=== PATIENT | female | born 1990 | race Caucasian/White ===

== ENCOUNTER 2017-12-12 15:51 | Emergency (ER) | payer OTHER ==
--- NOTE | 2017-12-12 16:14 | C.PDOC ---
History Of Present Illness 27 yr old F c/o non productive cough for 1 week, fever in the first 3 days, now resolved, mild nasal congestion. Denies n/v/d, abdominal pain. Time Seen by Provider: 12/12/17 16:07 Chief Complaint (Nursing): Cough, Cold, Congestion History Per: Patient History/Exam Limitations: no limitations Onset/Duration Of Symptoms: Days (7) Current Symptoms Are (Timing): Better Location Of Pain: Other (cough) Associated Symptoms: Fever (now resolved) Past Medical History Reviewed: Historical Data, Nursing Documentation, Vital Signs Vital Signs: Last Vital Signs Temp 98.3 F 12/12/17 16:03 Pulse 94 H 12/12/17 16:03 Resp 18 12/12/17 16:03 BP 107/74 12/12/17 16:03 Pulse Ox 100 12/12/17 16:14 - Medical History PMH: Asthma Family History: States: No Known Family Hx - Social History Hx Alcohol Use: No Hx Substance Use: No - Immunization History Hx Tetanus Toxoid Vaccination: No Hx Influenza Vaccination: No Hx Pneumococcal Vaccination: No Review Of Systems Except As Marked, All Systems Reviewed And Found Negative. Constitutional: Positive for: Fever ENT: Negative for: Ear Pain Cardiovascular: Negative for: Chest Pain Respiratory: Positive for: Cough. Negative for: SOB with Excertion, Sputum, Wheezing Gastrointestinal: Negative for: Nausea, Vomiting, Abdominal Pain Genitourinary: Negative for: Dysuria Musculoskeletal: Negative for: Neck Pain Physical Exam - Physical Exam Appears: Well, Non-toxic Skin: Normal Color, Warm, Dry Head: Atraumatic, Normacephalic Eye(s): bilateral: Normal Inspection Ear(s): Bilateral: Normal Nose: Normal Oral Mucosa: Moist Tongue: Normal Appearing Lips: Normal Appearing Gingiva: Normal Appearing Throat: Normal Neck: Normal, Normal ROM Chest: Symmetrical Cardiovascular: Rhythm Regular Respiratory: Normal Breath Sounds, No Rhonchi, No Stridor, No Wheezing Gastrointestinal/Abdominal: Normal Exam, Bowel Sounds, Soft, No Tenderness Back: Normal Inspection Extremity: Normal ROM, No Tenderness Neurological/Psych: Oriented x3, Normal Speech ED Course And Treatment O2 Sat by Pulse Oximetry: 100 Pulse Ox Interpretation: Normal Disposition Counseled Patient/Family Regarding: Studies Performed, Diagnosis, Need For Followup, Rx Given - Disposition Referrals: [facility] [Outside] [facility] [Outside] Disposition: HOME/ ROUTINE Disposition Time: 16:12 Condition: STABLE Additional Instructions: FOLLOW UP WITH PMD IN 1-2 DAYS FOR RE-EVALUATION. IF SYMPTOMS GET WORSE OR ANY NEW CONCERNING SYMPTOMS DEVELOP RETURN TO ED. Prescriptions: Benzonatate [Tessalon Perle] 2 cap PO TID PRN #30 capsule PRN Reason: Cough Forms: [employer] (Sami) - Clinical Impression Clinical Impression: Upper respiratory infection
[2017-12-12 16:15] VITALS: BP 107/74; PULSE 94; RESP 18; TEMP 98.3; O2SAT 100
== END 2017-12-12 16:35 | disposition home or self-care (01) ==
LOC: C.ER 15:51
DX: J06.9 Acute upper respiratory infection, unspecified (principal)

== ENCOUNTER 2018-09-13 20:34 | Emergency (ER) | payer SELFPAY ==
--- NOTE | 2018-09-13 21:31 | C.PDOC ---
History Of Present Illness 27 year old female with PMHx of vertigo presents to the ED c/o vertigo that started earlier today. Patient reports when she stood up the symptoms started, patient initially thought her blood sugar was low so she ate some food but symptoms persisted. Patient states she is shivering, had has a frontal headache. Patient also c/o right earache as well. Patient denies fever, nausea, vomit, diarrhea, visual changes, syncope, tinnitus, weakness, numbness, injury, fall, trauma. Time Seen by Provider: 09/13/18 20:51 Chief Complaint (Nursing): Dizziness/Lightheaded History Per: Patient History/Exam Limitations: no limitations Onset/Duration Of Symptoms: Hrs Current Symptoms Are (Timing): Still Present Activity At Onset Of Symptoms: Standing Associated Symptoms Preceding Syncopal Episode: Vertigo Seizure Or Post-ictal Symptoms: None Possible Causative Factor(s): Vertigo Fall Associated With With Symptoms: No Severity: None Recent travel outside of the [place]: No Additional History Per: Patient Past Medical History Reviewed: Historical Data, Nursing Documentation, Vital Signs Vital Signs: Last Vital Signs Temp 97.5 F L 09/13/18 20:43 Pulse 90 09/13/18 20:43 Resp 18 09/13/18 20:43 BP 138/83 09/13/18 20:43 Pulse Ox 100 09/13/18 20:43 - Medical History PMH: Asthma, Migraine Surgical History: No Surg Hx Family History: States: Unknown Family Hx - Social History Hx Alcohol Use: Yes Hx Substance Use: No - Immunization History Hx Tetanus Toxoid Vaccination: No Hx Influenza Vaccination: No Hx Pneumococcal Vaccination: No Review Of Systems Constitutional: Negative for: Fever, Chills Eyes: Negative for: Vision Change Cardiovascular: Negative for: Chest Pain Respiratory: Negative for: Shortness of Breath Gastrointestinal: Negative for: Nausea, Vomiting Skin: Negative for: Rash Neurological: Positive for: Headache, Dizziness. Negative for: Weakness, Numbness Physical Exam - Physical Exam Appears: Non-toxic, No Acute Distress Skin: Normal Color, Warm, Dry Head: Atraumatic, Normacephalic Eye(s): bilateral: Normal Inspection, PERRL, EOMI Ear(s): Bilateral: Normal Oral Mucosa: Moist Neck: Normal ROM, Supple Chest: Symmetrical Cardiovascular: Rhythm Regular Respiratory: Normal Breath Sounds, No Rales, No Rhonchi, No Wheezing Gastrointestinal/Abdominal: Soft, No Tenderness, No Guarding, No Rebound Extremity: Normal ROM, No Tenderness, No Swelling Neurological/Psych: Oriented x3, Normal Speech, Normal Cognition, Other (no nystagmus ) Gait: Steady ED Course And Treatment O2 Sat by Pulse Oximetry: 100 (ON RA) Pulse Ox Interpretation: Normal Medical Decision Making Medical Decision Making: Plan: * Antivert 25 mg PO 11:35- patient reports symptoms have improved after medication. Patient is able to sit without feeling dizzy. Patient states she still feels chills and body aches. Patient was offered the flu test however patient states she just wants to go home and rest. Patient was advised to follow up with [facility]. Disposition Counseled Patient/Family Regarding: Diagnosis, Need For Followup - Disposition Referrals: [facility] [Outside] Disposition: HOME/ ROUTINE Disposition Time: 23:40 Condition: STABLE Additional Instructions: SHELLI BAUTISTA, thank you for letting us take care of you today. Your provider was Carolyne Acosta MD and you were treated for DIZZINESS. The emergency medical care you received today was directed at your acute symptoms. If you were prescribed any medication, please fill it and take as directed. It may take several days for your symptoms to resolve. Return to the Emergency Department if your symptoms worsen, do not improve, or if you have any other problems. Please contact your doctor or call one of the physicians/clinics you have been referred to that are listed on the Patient Visit Information form that is included in your discharge packet. Bring any paperwork you were given at discharge with you along with any medications you are taking to your follow up visit. Our treatment cannot replace ongoing medical care by a primary care provider outside of the emergency department. Thank you for allowing the [facility] team to be part of your care today. Prescriptions: Meclizine [Antivert] 12.5 mg PO TID #20 tab Instructions: Vertigo (a Type of Dizziness) (DC) Forms: [employer] (Indonesian), General Discharge Instructions - POA Present On Arrival: None - Clinical Impression Clinical Impression: Dizziness, Vertigo - Scribe Statement The provider has reviewed the documentation as recorded by the Scribe Stanley Almendarez All medical record entries made by the Scribe were at my direction and personally dictated by me. I have reviewed the chart and agree that the record accurately reflects my personal performance of the history, physical exam, [facility] decision making, and the department course for this patient. I have also personally directed, reviewed, and agree with the discharge instructions and disposition.
[2018-09-13 22:35] VITALS: BP 116/77; PULSE 94; RESP 16; TEMP 97.9
[2018-09-13 23:43] VITALS: O2SAT 100
== END 2018-09-13 23:49 | disposition home or self-care (01) ==
LOC: C.ER 20:34 → SUPCPDRO 20:34 → C.ER 23:49
DX: R42 Dizziness and giddiness (principal)